=== PATIENT | female | born 1980 | race African-American/Black ===

== ENCOUNTER 2016-09-23 22:54 | Emergency (ER) | payer BC ==
[~2016-09-23] VITALS: Ht 162.6 cm; Wt 67.0 kg
[2016-09-24] MEDS ORDERED: SODIUM CHLORIDE 0.9% 1,000 ML IV ONE (02:44)
[2016-09-24] MEDS ORDERED: ONDANSETRON HCL 4MG/2ML VIAL IV SCH (03:00)
[2016-09-24] MEDS ORDERED: MORPHINE SULFATE 4 MG/ML CPJ (NOT FOR IM USE) IV SCH (03:00)
[2016-09-24 03:08] LABS: BASOPHILS % 0.8 % (0.0-2.0); EOSINOPHILS % 0.8 % (0.0-5.0); HEMATOCRIT. 37.6 % (36.0-48.0); HEMOGLOBIN. 12.8 g/dL (12.0-16.0); LYMPHOCYTES % 30.6 % (20.0-50.0); MEAN CORPUSCULAR HEMOGLOBIN 31.9 pg (28.0-32.0); MEAN CORPUSCULAR VOLUME 93.5 fL (81.0-99.0); MEAN PLATELET VOLUME 7.9 fl (7.4-10.4); MONOCYTES % 7.1 % (2.0-8.0); NEUTROPHILS % 60.7 % (40.0-76.0); PLATELET 241 x1000/uL (130-400); RED BLOOD CELL COUNT 4.02 mill/uL (4.2-5.4); RED CELL DISTRIBUTION WIDTH 12.9 % (11.6-14.6)
[2016-09-24 03:12] LABS: CHLORIDE 103 mEq/L (98-107)
[2016-09-24 03:14] LABS: PROTHROMBIN TIME 10.6 sec (9.4-11.6)
[2016-09-24 03:28] LABS: CARBON DIOXIDE 27 mEq/L (21-32)
[2016-09-24 03:36] LABS: B-HCG QUANTITATIVE 7306 mIU/mL (<3)
[2016-09-24 04:40] VITALS: BP 119/73
== END 2016-09-24 04:59 | disposition home or self-care (01) ==
LOC: ER 22:54
DX: O36.4XX0 Maternal care for intrauterine death, not applicable or unspecified (principal); Z3A.09 9 weeks gestation of pregnancy; R10.30 Lower abdominal pain, unspecified; R11.0 Nausea; Z98.890 Other specified postprocedural states
CPT/HCPCS: 36415; 76801; 76817; 80053; 84702; 85025; 85610; 86850; 86900; 86901; 99285; Z7610

== ENCOUNTER 2019-04-10 12:57 | Emergency (ER) | payer BC, MEDICAID ==
[~2019-04-10] VITALS: Ht 160 cm; Wt 70.0 kg
[2019-04-10 13:08] VITALS: BP 116/72
[2019-04-10 14:52] LABS: BASOPHILS % 0.4 % (0.0-2.0); EOSINOPHILS % 1.7 % (0.0-5.0); HEMATOCRIT. 37.1 % (36.0-48.0); LYMPHOCYTES % 28.8 % (20.0-50.0); MEAN CORPUSCULAR HEMOGLOBIN 32.5 pg (28.0-32.0); MEAN PLATELET VOLUME 8.3 fl (7.4-10.4); MONOCYTES % 9.6 % (2.0-8.0); NEUTROPHILS % 59.5 % (40.0-76.0); PLATELET 243 x1000/uL (130-400); RED BLOOD CELL COUNT 3.99 mill/uL (4.2-5.4); RED CELL DISTRIBUTION WIDTH 12.9 % (11.6-14.6)
[2019-04-10 14:59] LABS: CHLORIDE 106 mEq/L (98-107)
[2019-04-10 15:43] LABS: CLARITY URINE CLEAR (CLEAR); COLOR URINE YELLOW (YELLOW); KETONES URINE NEGATIVE (NEGATIVE); LEUKOCYTE ESTERASE URINE NEGATIVE (NEGATIVE); NITRITE URINE NEGATIVE (NEGATIVE); OCCULT BLOOD URINE NEGATIVE (NEGATIVE); PH URINE 7.5 (4.5-8.0); PROTEIN URINE NEGATIVE (NEGATIVE); SPECIFIC GRAVITY URINE 1.009 (1.005-1.030); UROBILINOGEN URINE 0.2 E.U./dL (0.2-1.0)
== END 2019-04-10 18:00 | disposition home or self-care (01) ==
LOC: ER 12:57
DX: O21.0 Mild hyperemesis gravidarum (principal); M79.642 Pain in left hand; Z3A.00 Weeks of gestation of pregnancy not specified
CPT/HCPCS: 36415; 73130; 80053; 81003; 85025; 99284

== ENCOUNTER 2019-10-31 15:50 | Inpatient (IN) | payer MEDICAID ==
[~2019-10-31] VITALS: Ht 160 cm; Wt 84.4 kg
[2019-10-31] MEDS ORDERED: RHO(D) IMMUNE GLOBULIN 300 MCG/SYR IM PRN ×2 (16:00→19:30)
[2019-10-31 16:31] LABS: BASOPHILS % 0.6 % (0.0-2.0); EOSINOPHILS % 0.2 % (0.0-5.0); HEMATOCRIT. 33.4 % (36.0-48.0); HEMOGLOBIN. 11.4 g/dL (12.0-16.0); LYMPHOCYTES % 26.6 % (20.0-50.0); MEAN CORPUSCULAR VOLUME 90.8 fL (81.0-99.0); MEAN PLATELET VOLUME 11.4 fl (7.4-10.4); MONOCYTES % 12.8 % (2.0-8.0); NEUTROPHILS % 59.8 % (40.0-76.0); PLATELET 139 x1000/uL (130-400); RED BLOOD CELL COUNT 3.68 mill/uL (4.2-5.4)
[2019-10-31 16:39] LABS: INR 0.9; PARTIAL THROMBOPLASTIN TIME 27.9 sec (23.4-31.0); PROTHROMBIN TIME 9.8 sec (9.6-11.0)
[2019-10-31 16:56] LABS: CLARITY URINE CLOUDY (CLEAR); COLOR URINE YELLOW (YELLOW); KETONES URINE TRACE (NEGATIVE); LEUKOCYTE ESTERASE URINE TRACE (NEGATIVE); NITRITE URINE NEGATIVE (NEGATIVE); OCCULT BLOOD URINE 3+ (NEGATIVE); PH URINE 5.5 (4.5-8.0); PROTEIN URINE 3+ (NEGATIVE); SPECIFIC GRAVITY URINE 1.016 (1.005-1.030)
[2019-10-31] MEDS: LACTATED RINGERS 1,000 ML IV SCH ×2 (17:03→17:04)
[2019-10-31 17:04] LABS: *BARBITURATES SCREEN URINE NEGATIVE (NEGATIVE); *BENZODIAZEPINES SCREEN URINE NEGATIVE (NEGATIVE)
[2019-10-31 17:06] LABS: *AMPHETAMINES SCREEN URINE NEGATIVE (NEGATIVE); *COCAINE SCREEN URINE NEGATIVE (NEGATIVE); CANNABINOID URINE SCREEN NEGATIVE (NEGATIVE); METHADONE URINE SCREEN NEGATIVE (NEGATIVE); OPIATES URINE SCREEN NEGATIVE (NEGATIVE); PHENCYCLIDINE URINE SCREEN NEGATIVE (NEGATIVE)
[2019-10-31] MEDS ORDERED: FENTANYL CITRATE/PF 50MCG/ML 2ML VIAL ONE (17:16)
[2019-10-31] MEDS ORDERED: MORPHINE SULFATE/PF 1MG/ML 10ML AMP ONE (17:16)
[2019-10-31 17:27] LABS: HEPATITIS B SURFACE ANTIGEN REACTIVE PEND CONFIR
[2019-10-31] MEDS ORDERED: ONDANSETRON HCL 4MG/2ML INJ IV PRN (18:15)
[2019-10-31] MEDS ORDERED: LABETALOL 5MG/ML SYR 20 MG/4 ML SYRINGE IV PRN (18:15)
[2019-10-31] MEDS ORDERED: DIPHENHYDRAMINE 50MG/ML VIAL IV PRN (18:15)
[2019-10-31] MEDS ORDERED: MEPERIDINE HCL/PF 25MG/ML CPJ IV PRN (18:15)
[2019-10-31] MEDS ORDERED: BUTORPHANOL TARTRATE 2 MG/ML VIAL IM PRN (18:15)
[2019-10-31] MEDS ORDERED: HYDROMORPHONE HCL/PF 2MG/ML CPJ IV PRN (18:15)
[2019-10-31] MEDS ORDERED: KETOROLAC 60MG/2ML VIAL IM ONE (18:52)
[2019-10-31] MEDS ORDERED: CEFAZOLIN SODIUM 1000MG/VIAL ONE (18:52)
[2019-10-31] MEDS ORDERED: SODIUM CHLORIDE 0.9% 10ML VIAL ONE (18:52)
[2019-10-31] MEDS ORDERED: OXYTOCIN 10 UNITS/ML 1ML ONE (18:52)
[2019-10-31] MEDS ORDERED: LANOLIN OINT 7GM TUBE TOP PRN (19:30)
[2019-10-31] MEDS ORDERED: DEXT 5%/LR + PITOCIN 20UNITS/L 1,000 ML IV ONE (19:45)
[2019-10-31 21:00] VITALS: BP 130/84
[2019-10-31] MEDS: ONDANSETRON HCL 4MG/2ML INJ IV PRN (22:27)
[2019-11-01] VITALS: BP 125/81
[2019-11-01 05:00] VITALS: BP 122/70
[2019-11-01] MEDS: ONDANSETRON HCL 4MG/2ML INJ IV PRN ×2 (05:37→05:38)
[2019-11-01] MEDS: KETOROLAC 30MG/ML VIAL IV PRN ×2 (05:39→12:08)
[2019-11-01 07:13] LABS: BASOPHILS % 0.1 % (0.0-2.0); HEMATOCRIT. 28.7 % (36.0-48.0); LYMPHOCYTES % 10.9 % (20.0-50.0); MEAN CORPUSCULAR HEMOGLOBIN 31.7 pg (28.0-32.0); MEAN CORPUSCULAR VOLUME 91.1 fL (81.0-99.0); MEAN PLATELET VOLUME 11.7 fl (7.4-10.4); MONOCYTES % 10.1 % (2.0-8.0); NEUTROPHILS % 78.9 % (40.0-76.0); PLATELET 145 x1000/uL (130-400); RED BLOOD CELL COUNT 3.15 mill/uL (4.2-5.4); RED CELL DISTRIBUTION WIDTH 14.9 % (11.6-14.6)
[2019-11-01 08:00] VITALS: BP 128/75
[2019-11-01] MEDS: PRENATAL VIT/FE FUMARATE/FA TABLET PO SCH (09:00)
[2019-11-01 12:00] VITALS: BP 122/79
[2019-11-01 16:05] VITALS: BP 125/68
[2019-11-01] MEDS ORDERED: IBUPROFEN 400MG TABLET PO PRN (18:17)
[2019-11-01] MEDS ORDERED: ACETAMINOPHEN WITH CODEINE 300/30MG TABLET PO PRN (18:17)
[2019-11-01] MEDS ORDERED: HYDROCODONE/ACETAMINOPHEN 5/325MG TABLET PO PRN (18:17)
[2019-11-01 20:00] VITALS: BP 113/67
[2019-11-01] MEDS: IBUPROFEN 800MG TABLET PO PRN (21:05)
[2019-11-01] MEDS: DOCUSATE SODIUM 100MG CAPSULE PO SCH (21:06)
[2019-11-02] VITALS: BP 121/75
[2019-11-02 08:00] VITALS: BP 132/81
[2019-11-02] MEDS: PRENATAL VIT/FE FUMARATE/FA TABLET PO SCH (09:00)
[2019-11-02] MEDS: IBUPROFEN 800MG TABLET PO PRN ×2 (09:11→16:42)
[2019-11-02 14:58] VITALS: BP 140/60
[2019-11-02 20:00] VITALS: BP 130/80
[2019-11-02] MEDS: DOCUSATE SODIUM 100MG CAPSULE PO SCH (21:13)
[2019-11-03] MEDS: IBUPROFEN 800MG TABLET PO PRN ×3 (02:13→16:07)
[2019-11-03 04:30] VITALS: BP 106/67
[2019-11-03] MEDS ORDERED: BLOOD SUGAR DIAGNOSTIC STRIP TEST NR (07:00)
[2019-11-03 08:00] VITALS: BP 133/87
[2019-11-03] MEDS: PRENATAL VIT/FE FUMARATE/FA TABLET PO SCH (08:49)
[2019-11-03] MEDS ORDERED: BISACODYL 5MG TABLET PO PRN (09:00)
[2019-11-03] MEDS ORDERED: MAGNESIUM HYDROXIDE 400MG/5ML 30ML UDC PO PRN (09:00)
[2019-11-03 12:00] VITALS: BP 132/88
[2019-11-05 09:08] LABS: HBSAG CONFIRMATION Positive (.); HBSAG SCREEN Confirm. indicated (Negative)
== END 2019-11-03 17:00 | disposition home or self-care (01) | DRG 540 ==
LOC: INTOOBSV 15:50 → OBSVTOIN 15:50 → 8 EST LDRP 15:50 → 8EST 21:58
PROVIDERS: ADMIT Obstetrics & Gynecology; ATTEND Obstetrics & Gynecology
PROC: 10D00Z1 Extraction of Products of Conception, Low, Open Approach (ICD-10-PCS; principal; 2019-10-31)
DX: O32.1XX0 Maternal care for breech presentation, not applicable or unspecified (principal); O24.429 Gestational diabetes mellitus in childbirth, unspecified control; O34.211 Maternal care for low transverse scar from previous cesarean delivery; O99.02 Anemia complicating childbirth; O77.0 Labor and delivery complicated by meconium in amniotic fluid; B19.10 Unspecified viral hepatitis B without hepatic coma; O98.42 Viral hepatitis complicating childbirth; D62 Acute posthemorrhagic anemia; Z3A.38 38 weeks gestation of pregnancy; Z37.0 Single live birth
CPT/HCPCS: 36415; 80305; 81003; 82947; 82962; 85025; 86592; 86703; 86762; 86850; 86900; 87340; 88307; 99281; G0378; J0690; J1885; J2274; J2405; J2590; J3010